=== PATIENT | female | born 2000 | race Two or more races ===

== ENCOUNTER 2022-07-10 09:01 | Emergency (ER) | payer MEDICAID ==
[~2022-07-10] VITALS: Ht 157.5 cm; Wt 117.8 kg
[2022-07-10 09:06] VITALS: BP 112/74
[2022-07-10] MEDS ORDERED: PENICILLIN G BENZ 1200000 UNITS/2 ML SYRG IM ONE (09:30)
== END 2022-07-10 10:04 | disposition home or self-care (01) ==
LOC: ER 09:01
DX: Z86.19 Personal history of other infectious and parasitic diseases (principal)
CPT/HCPCS: 96372; 99283; J0561